=== PATIENT | male | born 1970 | race Caucasian/White ===

== ENCOUNTER 2018-07-28 20:29 | Emergency (ER) | payer OTHER ==
[~2018-07-28] VITALS: Ht 182.8 cm; Wt 108.9 kg
[~2018-07-28 20:29] MED LIST: AUGMENTIN 875 M1 TAB PO; CEPHALEXIN500 M1 PO; CIPRODEX 0.3%-7.5 ML OT; CLARITIN10 MG PO; KEFLEX500 MG PO; PROVENTIL0.09 MG/AC IH; ZITHROMAX Z PA250 MG PO
[2018-07-28] MEDS ORDERED: AUGMENTIN 875875 MG PO (21:15)
== END 2018-07-28 21:40 | disposition home or self-care (01) ==
LOC: ED 20:29
DX: K02.9 Dental caries, unspecified (principal); F17.200 Nicotine dependence, unspecified, uncomplicated; Z91.013 Allergy to seafood

== ENCOUNTER 2020-05-23 16:34 | Emergency (ER) | payer OTHER ==
[~2020-05-23] VITALS: Wt 113.4 kg
[~2020-05-23 16:34] MED LIST changes: +AUGMENTIN 875875 MG PO
== END 2020-05-23 18:32 | disposition home or self-care (01) ==
LOC: ED 16:34
DX: S69.92XA Unspecified injury of left wrist, hand and finger(s), initial encounter (principal); Z91.030 Bee allergy status; Z79.899 Other long term (current) drug therapy; X58.XXXA Exposure to other specified factors, initial encounter; Y93.89 Activity, other specified; Y92.89 Other specified places as the place of occurrence of the external cause; Y99.8 Other external cause status

== ENCOUNTER → 2023-10-25 | Outpatient (CLI) | payer OTHER ==
[2023-10-25 13:12] LABS: BASO % 0.4 % (0.0-1.0); EOS % 0.1 % (1.0-4.0); HEMATOCRIT 40.1 % (42.0-52.0); LYMPH # 1.8 10*3/uL (1.3-4.4); LYMPH % 23.1 % (27.0-41.0); MEAN CELL VOLUME 92.2 fl (80.0-94.0); MEAN CORPUSCULAR HGB CONC 33.7 g/dl (33.0-37.0); MEAN PLATELET VOLUME 9.2 fl (9.6-12.3); MONO # 0.5 10*3/uL (0.1-1.0); MONO % 5.8 % (3.0-9.0); NEUT # 5.4 10*3/uL (2.3-7.9); NEUT % 70.5 % (47.0-73.0); PLATELET COUNT AUTOMATED 269 10*3/uL (130-400); RED BLOOD COUNT 4.35 10*6/uL (4.50-5.90); RED CELL DISTRI WIDTH 12.7 % (0-14.5); WHITE BLOOD COUNT 7.7 10*3/uL (4.8-10.8)
[2023-10-25 13:49] LABS: ALKALINE PHOSPHATASE 64 U/L (46-116); BUN 7 mg/dl (9-23); CHLORIDE 109 mmol/L (98-107); CHOLESTEROL 124 mg/dL (<200); FREE T4 1.16 ng/dl (0.89-1.76); LDL CHOLESTEROL 72 mg/dL (9-159); POTASSIUM 3.8 mmol/L (3.4-5.1); TOTAL PROTEIN 7.4 gm/dL (6.0-8.0); TRIGLYCERIDES 56 mg/dl (<150)
[2023-10-25 14:09] LABS: SGPT/ALT < 7 U/L (5-49)
[2023-10-26 08:10] LABS: HEPATITIS B SURFACE AB Non Reactive (.); HEPATITIS B SURFACE AG Negative (Negative)
== END | disposition home or self-care (01) ==
LOC: LAB 12:49
PROVIDERS: ATTEND Internal Medicine Nephrology
DX: Z11.59 Encounter for screening for other viral diseases (principal); E66.9 Obesity, unspecified; I10 Essential (primary) hypertension; H66.92 Otitis media, unspecified, left ear; L30.9 Dermatitis, unspecified; Z68.30 Body mass index [BMI] 30.0-30.9, adult